=== PATIENT | male | born 1975 | race Caucasian/White ===

== ENCOUNTER 2018-07-14 13:58 | Emergency (ER) | payer MEDICAID ==
[~2018-07-14] VITALS: Ht 180.3 cm; Wt 71.4 kg
[2018-07-14 14:24] VITALS: BP 140/100; Ht 180.3 cm; Wt 71.4 kg
[2018-07-14] MEDS ORDERED: ZOFRAN8 MG PO (14:29)
[2018-07-14] MEDS ORDERED: VALIUM10 MG PO (14:30)
[2018-07-14] MEDS ORDERED: PROTONIX40 MG PO (14:31)
[2018-07-14] MEDS ORDERED: OXYCODONE-APAP1 T10 PO (14:31)
[2018-07-14] MEDS ORDERED: DECADRON4 MG PO (14:32)
[2018-07-14] MEDS ORDERED: DILAUDID2 MG PO (14:33)
[2018-07-14] MEDS ORDERED: SOMA350 MG PO (14:33)
== END 2018-07-14 16:39 | disposition left against medical advice (07) ==
LOC: D.ER 13:58
DX: M54.2 Cervicalgia (principal); F17.200 Nicotine dependence, unspecified, uncomplicated

== ENCOUNTER → 2018-09-02 11:22 | Outpatient (CLI) | payer MEDICAID ==
[2018-07-14 14:24] VITALS: BMI 21.9
[~2018-09-02 11:22] MED LIST: DECADRON4 MG PO; DILAUDID2 MG PO; OXYCODONE-APAP1 T10 PO; PROTONIX40 MG PO; SOMA350 MG PO; VALIUM10 MG PO; ZOFRAN8 MG PO
[2018-09-02 11:54] LABS: BASOPHILS 0.2 % (0-2); EOSINOPHILS 0.1 % (0-7); HEMATOCRIT 37.7 % (42.0-54.0); HEMOGLOBIN 11.9 g/dL (13.5-17.5); IMMATURE GRANULOCYTES 0.3 % (0-5); LYMPHOCYTES 8.4 % (15-50); MCH 26.3 pg (26.0-34.0); MCHC 31.6 g/dL (31.0-37.0); MCV 83.2 fL (80.0-100.0); MEAN PLATELET VOLUME 10.8 fL (7.4-10.4); MONOCYTES 9.4 % (2-11); NEUTROPHILS 81.6 % (40-80); PLATELET COUNT 311 10x3/uL (130-400); RBC 4.53 10x6/uL (4.20-6.10); RDW 16.5 % (11.5-14.5); WBC 17.6 10x3/uL (4.8-10.8)
[2018-09-02 12:12] LABS: BILIRUBIN - TOTAL 0.08 mg/dL (0.2-1.3); CREATININE - SERUM 0.9 mg/dL (0.6-1.3); VANCOMYCIN - TROUGH 4.1 ug/mL (10.0-20.0)
== END | disposition home or self-care (01) ==
LOC: D.LABREF 11:22
PROVIDERS: ATTEND Internal Medicine Infectious Disease
DX: Z47.89 Encounter for other orthopedic aftercare (principal)

== ENCOUNTER 2019-02-21 14:59 | Emergency (ER) | payer MEDICAID ==
[~2019-02-21] VITALS: Ht 180.3 cm; Wt 66.8 kg
[2019-02-21 15:00] VITALS: Ht 180.3 cm; Wt 66.8 kg
[2019-02-21] MEDS ORDERED: VIBRAMYCIN 100100 MG PO (15:25)
[2019-02-21] MEDS ORDERED: VOLTAREN75 MG PO (15:25)
[2019-02-21 16:10] VITALS: BP 131/85
== END 2019-02-21 16:10 | disposition home or self-care (01) ==
LOC: D.ER 14:59
DX: L03.113 Cellulitis of right upper limb (principal)